=== PATIENT | female | born 1940 | race Caucasian/White ===

== ENCOUNTER → 2016-10-03 | Outpatient (CLI) | payer MEDICARE, OTHER ==
[~2016-10-03] MED LIST: ALLOPURINOL100 MG PO; ALLOPURINOL300 MG PO; AUGMENTIN875 MG PO; CIPRO500 MG PO; DEXEDRINE, DEXT10 MG PO; FERROUS SULFAT325 MG PO; FLAGYL500 MG PO; HYDROCHLOROTHIA25 MG PO; IRON; LABETALOL HCL200 MG PO; METHYLDOPA250 MG PO; PROCRIT; PROCRIT20000 UNIT IV; RANITIDINE HCL150 M1 PO; TRAMADOL HCL100 MG PO; ZESTRIL,PRINIVI10 MG PO
== END | disposition home or self-care (01) ==
LOC: CDC 09:45
DX: I49.8 Other specified cardiac arrhythmias (principal); G56.02 Carpal tunnel syndrome, left upper limb; M25.532 Pain in left wrist
CPT/HCPCS: 93000

== ENCOUNTER 2016-10-19 09:39 | Day surgery (SDC) | payer OTHER ==
[~2016-10-19] VITALS: Ht 162.6 cm; Wt 113.4 kg
[~2016-10-19 09:39] MED LIST changes: +ALDOMET250 MG PO; +LABETALOL HCL100 MG PO; +VITAMIN D PO; +ZYLOPRIM300 MG PO
[2016-10-19 10:17] VITALS: BP 181/72
[2016-10-19 11:21] LABS: METH RESISTANT S AUREUS PCR NEGATIVE (NEGATIVE)
[2016-10-19 11:22] LABS: PROBE CHECK PASS; SPECIMEN PROCESSING CONTROL PASS
[2016-10-19 13:40] VITALS: BP 140/60
[2016-10-19 14:25] VITALS: BP 145/63
== END 2016-10-19 14:28 | disposition home or self-care (01) ==
LOC: SDC 09:39
PROVIDERS: Orthopaedic Surgery
PROC: 01Q53ZZ Repair Median Nerve, Percutaneous Approach (ICD-10-PCS; principal; 2016-10-19)
DX: G56.02 Carpal tunnel syndrome, left upper limb (principal); I10 Essential (primary) hypertension; K21.9 Gastro-esophageal reflux disease without esophagitis; M10.9 Gout, unspecified; M19.90 Unspecified osteoarthritis, unspecified site
CPT/HCPCS: 87641; J2405; J3010; S0020